=== PATIENT | male | born 1945 | race Caucasian/White ===

== ENCOUNTER → 2017-06-25 | Outpatient (CLI) | payer MEDICARE | END | disposition home or self-care (01) | LOC: CFH 13:10 | PROVIDERS: ATTEND Nurse Practitioner | DX: J44.9 Chronic obstructive pulmonary disease, unspecified (principal) | CPT/HCPCS: 71250 ==

== ENCOUNTER → 2017-09-15 | Outpatient (CLI) | payer MEDICARE | END | disposition home or self-care (01) | LOC: CFH 09:11 | PROVIDERS: ATTEND Registered Nurse | DX: J44.9 Chronic obstructive pulmonary disease, unspecified (principal); Z98.890 Other specified postprocedural states | CPT/HCPCS: 71020 ==

== ENCOUNTER 2017-10-27 17:18 | Inpatient (IN) | payer MEDICARE ==
[~2017-10-27] VITALS: Ht 188 cm; Wt 149.7 kg
[2017-10-27 18:24] LABS: BASOPHILS # (AUTO) 0.01 x10^3/uL (0-0.1); BASOPHILS % (AUTO) 0 % (0-1); EOSINOPHILS # (AUTO) 0.27 x10^3/uL (0-0.4); EOSINOPHILS % (AUTO) 3 % (1-7); LYMPHOCYTES # (AUTO) 0.97 x10^3/uL (1-3.4); LYMPHOCYTES % (AUTO) 11 % (22-44); MD NO; MEAN CORPUSCULAR HGB CONC 32.6 g/dL (33.2-36.2); MEAN CORPUSCULAR VOLUME 88.9 fL (81-97); MEAN PLATELET VOLUME 8.4 fL (7.4-10.4); MONOCYTES # (AUTO) 0.72 x10^3/uL (0.2-0.8); MONOCYTES % (AUTO) 8 % (2-9); NEUTROPHILS # (AUTO) 7.27 x10^3/uL (1.8-6.8); NEUTROPHILS % (AUTO) 79 % (42-75); PLATELET COUNT 170 x10^3/uL (130-400); RED BLOOD COUNT 4.92 x10^6/uL (4.38-5.82); RED CELL DISTRIBUTION WIDTH 18.3 % (9.4-14.8)
[2017-10-27 18:35] LABS: ALANINE AMINOTRANSFERASE 25 U/L (12-78); ALBUMIN 3.2 g/dL (3.4-5.0); ANION GAP 8 mmol/L (5-15); CALCIUM 8.4 mg/dL (8.5-10.1); CHLORIDE 108 mmol/L (98-107); CREATININE 1.53 mg/dL (0.7-1.3)
[2017-10-27 18:39] LABS: ALKALINE PHOSPHATASE 116 U/L (45-117); BILIRUBIN,TOTAL 1.1 mg/dL (0.2-1.0); TOTAL PROTEIN 7.2 g/dL (6.4-8.2); TROPONIN I < 0.015 ng/mL (0.000-0.045)
[2017-10-27] MEDS ORDERED: ASPI-650 PO (18:53)
[2017-10-27] MEDS ORDERED: AMLO5TAB2 PO (18:53)
[2017-10-27] MEDS ORDERED: CITA40TA5 PO (18:53)
[2017-10-27] MEDS ORDERED: OXYGEN INH (18:53)
[2017-10-27] MEDS ORDERED: ATOR-2 PO (18:53)
[2017-10-27] MEDS ORDERED: GABA300C10 PO (18:53)
[2017-10-27] MEDS ORDERED: INSU100C5 SQ-INSULIN (18:53)
[2017-10-27] MEDS ORDERED: LOSA25TA5 PO (18:53)
[2017-10-27] MEDS ORDERED: CYAN100028 PO (18:53)
[2017-10-27] MEDS ORDERED: CARV-39 PO (18:53)
[2017-10-27] MEDS ORDERED: CHOL200040 PO (18:53)
[2017-10-27] MEDS ORDERED: ACET-1757 PO (18:53)
[2017-10-27] MEDS ORDERED: NAPR220C2 PO (18:53)
[2017-10-27] MEDS ORDERED: FURO-92 PO (18:53)
[2017-10-27] MEDS ORDERED: MAGN400T36 PO (19:04)
[2017-10-27] MEDS ORDERED: INSU100V11 SQ-INSULIN ×2 (19:04)
[2017-10-27] MEDS ORDERED: NPH,100V5 SQ ×2 (19:04)
[2017-10-27] MEDS ORDERED: TRAM100T2 PO (19:04)
[2017-10-27] MEDS ORDERED: GLYC10.7 INH (19:04)
[2017-10-27] MEDS ORDERED: ZOLP10TA5 PO (19:04)
[2017-10-27] MEDS ORDERED: TIOT4MIS3 INH (19:04)
[2017-10-27] MEDS ORDERED: MORPHINE SULFATE 4 MG/ML, 1ML ONE (19:11)
[2017-10-27] MEDS ORDERED: ASPIRIN 81 MG TABLET CHEW ONE (19:12)
[2017-10-27] MEDS ORDERED: ONDANSETRON 2MG/ML, 2ML ONE (19:12)
[2017-10-27] MEDS ORDERED: FUROSEMIDE 40 MG/4 ML ONE (19:16)
[2017-10-27] MEDS ORDERED: MORPHINE SULFATE 4 MG/ML, 1ML IVPush PRN (19:30)
[2017-10-27] MEDS ORDERED: FUROSEMIDE 40 MG/4 ML IV ONE (19:30)
[2017-10-27] MEDS ORDERED: ASPIRIN 81 MG TABLET CHEW PO ONE (19:30)
[2017-10-27] MEDS ORDERED: ONDANSETRON 2MG/ML, 2ML IVPush ONE (19:30)
[2017-10-27] MEDS ORDERED: INSULIN REGULAR 100 UNITS/ML, 3ML VIAL SQ-INSULIN SCH (20:30)
[2017-10-27] MEDS ORDERED: DOCUSATE 100 MG CAPSULE PO PRN (20:30)
[2017-10-27] MEDS ORDERED: ACETAMINOPHEN 325 MG TABLET PO PRN (20:30)
[2017-10-27] MEDS ORDERED: NITROGLYCERIN 0.4 MG BOTTLE (25 TABS) SL PRN (20:30)
[2017-10-27] MEDS ORDERED: morphine SULFATE 10 MG/ML, 1ML IVPush PRN (20:30)
[2017-10-27] MEDS ORDERED: TEMAZEPAM 15 MG CAPSULE PO PRN (20:30)
[2017-10-27] MEDS ORDERED: hydrALAzine 20 MG/ML, 1ML IVPush PRN (20:30)
[2017-10-27] MEDS ORDERED: ASPIRIN 325 MG TABLET EC PO SCH (21:00)
[2017-10-27] MEDS ORDERED: TEMPLATE NON-FORMULARY MED. ([Oxygen] 2 L) INH SCH (21:00)
[2017-10-27] MEDS: TEMPLATE NON-FORMULARY MED. (Tiotropium Br/Olodaterol HCl (Stiolto Respimat Inhal Spray) 2 INH SCH (21:00)
[2017-10-27] MEDS ORDERED: [UNRECOGNIZED DRUG - REMARK] MC SCH (23:00)
[2017-10-27] MEDS: methylPREDNISolone SOD SUCC 40 MG/ML IVPush SCH (23:51)
[2017-10-27] MEDS: GABAPENTIN 300 MG CAPSULE PO SCH (23:52)
[2017-10-27] MEDS: CARVEDILOL 25 MG TABLET PO SCH (23:52)
[2017-10-27 23:55] VITALS: BP 116/66
[2017-10-28 00:29] LABS: TROPONIN I 0.019 ng/mL (0.000-0.045)
[2017-10-28 02:49] LABS: TROPONIN I 0.016 ng/mL (0.000-0.045)
[2017-10-28 04:00] VITALS: BP 117/66
[2017-10-28] MEDS: methylPREDNISolone SOD SUCC 40 MG/ML IVPush SCH ×2 (06:23→12:00)
[2017-10-28 07:29] VITALS: BP 121/71
[2017-10-28] MEDS: FUROSEMIDE 40 MG/4 ML IV SCH ×2 (07:30→16:56)
[2017-10-28] MEDS ORDERED: INSULIN REGULAR 100 UNITS/ML, 3ML VIAL SQ-INSULIN SCH (07:30)
[2017-10-28] MEDS: INSULIN NPH HUMAN 100 UNIT/ML, 3ML VIAL SQ-INSULIN SCH ×3 (07:30→21:00)
[2017-10-28] MEDS: INSULIN REGULAR 100 UNITS/ML, 3ML VIAL SQ-INSULIN SCH ×3 (07:30→16:57)
[2017-10-28] MEDS: CITALOPRAM 20 MG TABLET PO SCH (09:00)
[2017-10-28] MEDS: GABAPENTIN 300 MG CAPSULE PO SCH ×2 (09:00→21:00)
[2017-10-28] MEDS ORDERED: INSULIN NPH HUMAN 100 UNIT/ML, 3ML VIAL SQ-INSULIN SCH (09:00)
[2017-10-28] MEDS ORDERED: ATORVASTATIN 80 MG TABLET PO SCH (09:00)
[2017-10-28] MEDS: CHOLECALCIFEROL 1,000 UNIT TABLET PO SCH (09:00)
[2017-10-28] MEDS: LOSARTAN 25MG TABLET PO SCH (09:00)
[2017-10-28] MEDS ORDERED: MAGNESIUM OXIDE 400 MG TABLET PO SCH (09:00)
[2017-10-28] MEDS: CYANOCOBALAMIN 1,000 MCG TABLET PO SCH (09:00)
[2017-10-28] MEDS: CARVEDILOL 25 MG TABLET PO SCH ×2 (09:00→21:00)
[2017-10-28] MEDS: AMLODIPINE 5 MG TABLET PO SCH (09:00)
[2017-10-28 14:54] VITALS: BP 114/57
[2017-10-28 19:47] VITALS: BP 136/65
[2017-10-28] MEDS ORDERED: ASPIRIN 81 MG TABLET EC PO SCH (21:00)
[2017-10-28] MEDS: TEMPLATE NON-FORMULARY MED. (Tiotropium Br/Olodaterol HCl (Stiolto Respimat Inhal Spray) 2 INH SCH (21:00)
[2017-10-28] MEDS ORDERED: ZOLPIDEM 10MG TABLET PO PRN (21:00)
[2017-10-28] MEDS ORDERED: ASPIRIN 325 MG TABLET PO SCH (23:00)
[2017-10-29 01:42] VITALS: BP 109/67
[2017-10-29 05:17] LABS: ALBUMIN 3.1 g/dL (3.4-5.0); ANION GAP 7 mmol/L (5-15); CALCIUM 8.4 mg/dL (8.5-10.1); CHLORIDE 104 mmol/L (98-107)
[2017-10-29 05:18] LABS: BASOPHILS % (AUTO) 0 % (0-1); EOSINOPHILS % (AUTO) 0 % (1-7); LYMPHOCYTES # (AUTO) 0.49 x10^3/uL (1-3.4); LYMPHOCYTES % (AUTO) 4 % (22-44); MD NO; MEAN CORPUSCULAR HGB CONC 32.4 g/dL (33.2-36.2); MEAN CORPUSCULAR VOLUME 89.3 fL (81-97); MEAN PLATELET VOLUME 8.8 fL (7.4-10.4); MONOCYTES # (AUTO) 0.73 x10^3/uL (0.2-0.8); MONOCYTES % (AUTO) 6 % (2-9); NEUTROPHILS # (AUTO) 11.22 x10^3/uL (1.8-6.8); NEUTROPHILS % (AUTO) 90 % (42-75); PLATELET COUNT 146 x10^3/uL (130-400); RED BLOOD COUNT 4.59 x10^6/uL (4.38-5.82); RED CELL DISTRIBUTION WIDTH 17.9 % (9.4-14.8)
[2017-10-29 05:20] LABS: ALANINE AMINOTRANSFERASE 21 U/L (12-78); ALKALINE PHOSPHATASE 103 U/L (45-117); BILIRUBIN,TOTAL 0.8 mg/dL (0.2-1.0); CREATININE 1.67 mg/dL (0.7-1.3); TOTAL PROTEIN 6.6 g/dL (6.4-8.2)
[2017-10-29] MEDS: INSULIN REGULAR 100 UNITS/ML, 3ML VIAL SQ-INSULIN SCH ×5 (07:30→21:00)
[2017-10-29] MEDS: FUROSEMIDE 40 MG/4 ML IV SCH (07:30)
[2017-10-29 08:19] VITALS: BP 150/77
[2017-10-29] MEDS ORDERED: REGADENOSON 0.4 MG/5 ML SYRINGE ONE (09:04)
[2017-10-29] MEDS: INSULIN NPH HUMAN 100 UNIT/ML, 3ML VIAL SQ-INSULIN SCH ×3 (09:11→21:36)
[2017-10-29] MEDS: AMLODIPINE 5 MG TABLET PO SCH (11:13)
[2017-10-29] MEDS: GABAPENTIN 300 MG CAPSULE PO SCH ×3 (11:13→21:35)
[2017-10-29] MEDS: CARVEDILOL 25 MG TABLET PO SCH (11:14)
[2017-10-29] MEDS: CHOLECALCIFEROL 1,000 UNIT TABLET PO SCH (11:14)
[2017-10-29] MEDS: CYANOCOBALAMIN 1,000 MCG TABLET PO SCH (11:14)
[2017-10-29] MEDS: LOSARTAN 25MG TABLET PO SCH (11:15)
[2017-10-29] MEDS: CITALOPRAM 20 MG TABLET PO SCH (11:15)
[2017-10-29 14:02] VITALS: BP 128/66
[2017-10-29] MEDS: FUROSEMIDE 20 MG/2 ML IV SCH (17:42)
[2017-10-29 17:46] VITALS: BP 147/76
[2017-10-29 19:39] VITALS: BP 135/74
[2017-10-29] MEDS: TEMPLATE NON-FORMULARY MED. (Tiotropium Br/Olodaterol HCl (Stiolto Respimat Inhal Spray) 2 INH SCH (21:00)
[2017-10-29] MEDS: ATORVASTATIN 80 MG TABLET PO SCH (21:36)
[2017-10-29] MEDS: ASPIRIN 81 MG TABLET EC PO SCH (21:37)
[2017-10-30 01:33] VITALS: BP 108/66
[2017-10-30 05:45] LABS: ANION GAP 4 mmol/L (5-15); CHLORIDE 105 mmol/L (98-107); CREATININE 1.27 mg/dL (0.7-1.3)
[2017-10-30 06:03] LABS: BASOPHILS # (AUTO) 0.02 x10^3/uL (0-0.1); BASOPHILS % (AUTO) 0 % (0-1); EOSINOPHILS # (AUTO) 0.15 x10^3/uL (0-0.4); EOSINOPHILS % (AUTO) 2 % (1-7); LYMPHOCYTES # (AUTO) 1.19 x10^3/uL (1-3.4); LYMPHOCYTES % (AUTO) 12 % (22-44); MD NO; MEAN CORPUSCULAR HEMOGLOBIN 28.4 pg (27.5-34.5); MEAN CORPUSCULAR HGB CONC 31.7 g/dL (33.2-36.2); MEAN CORPUSCULAR VOLUME 89.6 fL (81-97); MEAN PLATELET VOLUME 8.6 fL (7.4-10.4); MONOCYTES # (AUTO) 0.76 x10^3/uL (0.2-0.8); MONOCYTES % (AUTO) 8 % (2-9); NEUTROPHILS # (AUTO) 7.54 x10^3/uL (1.8-6.8); NEUTROPHILS % (AUTO) 78 % (42-75); PLATELET COUNT 147 x10^3/uL (130-400); RED BLOOD COUNT 4.57 x10^6/uL (4.38-5.82); RED CELL DISTRIBUTION WIDTH 18.3 % (9.4-14.8)
[2017-10-30] MEDS: INSULIN REGULAR 100 UNITS/ML, 3ML VIAL SQ-INSULIN SCH ×4 (06:29→21:00)
[2017-10-30] MEDS: INSULIN NPH HUMAN 100 UNIT/ML, 3ML VIAL SQ-INSULIN SCH ×2 (07:30→12:50)
[2017-10-30 08:00] VITALS: BP 134/84
[2017-10-30] MEDS ORDERED: CARVEDILOL 25 MG TABLET PO SCH (09:00)
[2017-10-30] MEDS: CYANOCOBALAMIN 1,000 MCG TABLET PO SCH (10:43)
[2017-10-30] MEDS: LOSARTAN 25MG TABLET PO SCH (10:43)
[2017-10-30] MEDS: CITALOPRAM 20 MG TABLET PO SCH (10:43)
[2017-10-30] MEDS: GABAPENTIN 300 MG CAPSULE PO SCH ×2 (10:43→21:13)
[2017-10-30] MEDS: CHOLECALCIFEROL 1,000 UNIT TABLET PO SCH (10:43)
[2017-10-30] MEDS: FUROSEMIDE 20 MG/2 ML IV SCH ×2 (10:46→16:38)
[2017-10-30 16:30] VITALS: BP 154/77
[2017-10-30 17:38] VITALS: BP 114/69
[2017-10-30] MEDS: TEMPLATE NON-FORMULARY MED. (Tiotropium Br/Olodaterol HCl (Stiolto Respimat Inhal Spray) 2 INH SCH (21:00)
[2017-10-30] MEDS ORDERED: SULFAMETH./TRIMETHOPRIM DS 800MG/160MG TABLET PO SCH (21:00)
[2017-10-30] MEDS ORDERED: INSULIN NPH HUMAN 100 UNIT/ML, 3ML VIAL SQ-INSULIN SCH (21:00)
[2017-10-30] MEDS: ASPIRIN 81 MG TABLET EC PO SCH (21:13)
[2017-10-30] MEDS: ATORVASTATIN 80 MG TABLET PO SCH (21:13)
[2017-10-30] MEDS: AMLODIPINE 5 MG TABLET PO SCH (21:13)
[2017-10-30 21:16] VITALS: BP 129/71
[2017-10-31 02:28] VITALS: BP 162/94
[2017-10-31 05:21] LABS: BASOPHILS # (AUTO) 0.05 x10^3/uL (0-0.1); BASOPHILS % (AUTO) 1 % (0-1); EOSINOPHILS # (AUTO) 0.39 x10^3/uL (0-0.4); EOSINOPHILS % (AUTO) 4 % (1-7); LYMPHOCYTES # (AUTO) 1.12 x10^3/uL (1-3.4); LYMPHOCYTES % (AUTO) 11 % (22-44); MD NO; MEAN CORPUSCULAR HEMOGLOBIN 28.7 pg (27.5-34.5); MEAN CORPUSCULAR HGB CONC 32.4 g/dL (33.2-36.2); MEAN CORPUSCULAR VOLUME 88.6 fL (81-97); MEAN PLATELET VOLUME 8.4 fL (7.4-10.4); MONOCYTES # (AUTO) 1.01 x10^3/uL (0.2-0.8); MONOCYTES % (AUTO) 10 % (2-9); NEUTROPHILS # (AUTO) 7.25 x10^3/uL (1.8-6.8); NEUTROPHILS % (AUTO) 74 % (42-75); PLATELET COUNT 172 x10^3/uL (130-400); RED BLOOD COUNT 5.08 x10^6/uL (4.38-5.82); RED CELL DISTRIBUTION WIDTH 18.6 % (9.4-14.8)
[2017-10-31 05:31] LABS: ANION GAP 5 mmol/L (5-15); CALCIUM 8.5 mg/dL (8.5-10.1); CHLORIDE 103 mmol/L (98-107); CREATININE 1.13 mg/dL (0.7-1.3)
[2017-10-31] MEDS: INSULIN REGULAR 100 UNITS/ML, 3ML VIAL SQ-INSULIN SCH ×4 (07:00→21:55)
[2017-10-31] MEDS: CITALOPRAM 20 MG TABLET PO SCH (08:26)
[2017-10-31] MEDS: CHOLECALCIFEROL 1,000 UNIT TABLET PO SCH (08:26)
[2017-10-31] MEDS: GABAPENTIN 300 MG CAPSULE PO SCH ×2 (08:27→21:52)
[2017-10-31] MEDS: LOSARTAN 25MG TABLET PO SCH (08:27)
[2017-10-31] MEDS: FUROSEMIDE 20 MG/2 ML IV SCH ×2 (08:27→17:52)
[2017-10-31] MEDS: CYANOCOBALAMIN 1,000 MCG TABLET PO SCH (08:31)
[2017-10-31] MEDS ORDERED: SODIUM CHLORIDE 0.9% 1,000 ML IV SCH ×2 (10:36→11:00)
[2017-10-31 12:51] VITALS: BP 172/66
[2017-10-31] MEDS: TEMPLATE NON-FORMULARY MED. (Tiotropium Br/Olodaterol HCl (Stiolto Respimat Inhal Spray) 2 INH SCH (21:00)
[2017-10-31 21:01] VITALS: BP 158/81
[2017-10-31] MEDS: ASPIRIN 81 MG TABLET EC PO SCH (21:52)
[2017-10-31] MEDS: AMLODIPINE 5 MG TABLET PO SCH (21:52)
[2017-10-31] MEDS: ATORVASTATIN 80 MG TABLET PO SCH (21:52)
[2017-10-31] MEDS: INSULIN NPH HUMAN 100 UNIT/ML, 3ML VIAL SQ-INSULIN SCH (21:54)
[2017-11-01 02:00] VITALS: BP 135/74
[2017-11-01 04:48] LABS: BASOPHILS # (AUTO) 0.07 x10^3/uL (0-0.1); BASOPHILS % (AUTO) 1 % (0-1); EOSINOPHILS # (AUTO) 0.41 x10^3/uL (0-0.4); EOSINOPHILS % (AUTO) 4 % (1-7); LYMPHOCYTES # (AUTO) 1.46 x10^3/uL (1-3.4); LYMPHOCYTES % (AUTO) 16 % (22-44); MD NO; MEAN CORPUSCULAR HEMOGLOBIN 29.2 pg (27.5-34.5); MEAN CORPUSCULAR HGB CONC 32.9 g/dL (33.2-36.2); MEAN CORPUSCULAR VOLUME 88.7 fL (81-97); MEAN PLATELET VOLUME 7.9 fL (7.4-10.4); MONOCYTES # (AUTO) 0.92 x10^3/uL (0.2-0.8); MONOCYTES % (AUTO) 10 % (2-9); NEUTROPHILS # (AUTO) 6.48 x10^3/uL (1.8-6.8); NEUTROPHILS % (AUTO) 69 % (42-75); PLATELET COUNT 167 x10^3/uL (130-400); RED BLOOD COUNT 5.09 x10^6/uL (4.38-5.82); RED CELL DISTRIBUTION WIDTH 18.1 % (9.4-14.8)
[2017-11-01 04:58] LABS: ANION GAP 3 mmol/L (5-15); CALCIUM 8.4 mg/dL (8.5-10.1); CHLORIDE 100 mmol/L (98-107); CREATININE 1.37 mg/dL (0.7-1.3)
[2017-11-01] MEDS: INSULIN REGULAR 100 UNITS/ML, 3ML VIAL SQ-INSULIN SCH ×4 (07:00→21:00)
[2017-11-01] MEDS: INSULIN NPH HUMAN 100 UNIT/ML, 3ML VIAL SQ-INSULIN SCH ×2 (07:30→20:59)
[2017-11-01 08:00] VITALS: BP 155/83
[2017-11-01] MEDS ORDERED: SODIUM CHLORIDE 0.9% 1,000 ML IV SCH (09:00)
[2017-11-01] MEDS ORDERED: BENZOCAINE AEROSOL SPRAY 20%, 60ML TP PRN (09:00)
[2017-11-01] MEDS ORDERED: LIDOCAINE 2%, 20ML ONE (09:22)
[2017-11-01] MEDS ORDERED: MIDAZOLAM 1 MG/ML, 5ML ONE (09:26)
[2017-11-01] MEDS ORDERED: FENTANYL PF 250 MCG/5ML ONE (09:26)
[2017-11-01] MEDS ORDERED: DEXAMETHASONE 4 MG/ML, 1ML ONE (09:30)
[2017-11-01] MEDS ORDERED: ONDANSETRON 2MG/ML, 2ML ONE (09:30)
[2017-11-01] MEDS ORDERED: PROPOFOL 10 MG/ML, 20ML ONE (09:30)
[2017-11-01] MEDS ORDERED: SUCCINYLCHOLINE 20 MG/ML, 10ML ONE (09:30)
[2017-11-01] MEDS ORDERED: APIXABAN 5 MG TABLET ONE (10:46)
[2017-11-01] MEDS ORDERED: ONDANSETRON 2MG/ML, 2ML IVPush PRN ×2 (11:00→11:30)
[2017-11-01] MEDS ORDERED: ACETAMINOPHEN 325 MG TABLET PO PRN ×2 (11:00→11:30)
[2017-11-01] MEDS: APIXABAN 5 MG TABLET PO SCH ×2 (11:00→20:36)
[2017-11-01] MEDS ORDERED: EPHEDRINE 50 MG/ML, 1ML IVPush PRN (11:30)
[2017-11-01] MEDS ORDERED: MIDAZOLAM 1 MG/ML, 2ML IV PRN (11:30)
[2017-11-01] MEDS ORDERED: FENTANYL PF 100 MCG/2ML IV PRN (11:30)
[2017-11-01] MEDS ORDERED: OXYcodone 5 MG/5 ML ORAL.SOL UDC PO PRN (11:30)
[2017-11-01] MEDS ORDERED: LABETALOL 5MG/ML, 20ML IV PRN (11:30)
[2017-11-01] MEDS ORDERED: ALBUTEROL/IPRATROPIUM 2.5MG/0.5MG, 3 ML NPPB PRN (11:30)
[2017-11-01] MEDS ORDERED: LORazepam 2 MG/ML, 1ML IVPush PRN (11:30)
[2017-11-01] MEDS ORDERED: HYDROmorphone 1 MG/ML, 1ML IV PRN (11:30)
[2017-11-01] MEDS ORDERED: OXYcodone 5 MG/5 ML ORAL.SOL UDC ONE (11:34)
[2017-11-01 12:30] VITALS: BP 160/80
[2017-11-01] MEDS: LOSARTAN 25MG TABLET PO SCH (12:48)
[2017-11-01] MEDS: CITALOPRAM 20 MG TABLET PO SCH (12:49)
[2017-11-01] MEDS: AMLODIPINE 5 MG TABLET PO SCH (12:50)
[2017-11-01] MEDS: GABAPENTIN 300 MG CAPSULE PO SCH ×2 (12:50→20:36)
[2017-11-01] MEDS: CHOLECALCIFEROL 1,000 UNIT TABLET PO SCH (12:50)
[2017-11-01] MEDS: CYANOCOBALAMIN 1,000 MCG TABLET PO SCH (12:50)
[2017-11-01] MEDS: FUROSEMIDE 40 MG TABLET PO SCH (13:01)
[2017-11-01 13:44] VITALS: BP 147/80
[2017-11-01 16:41] VITALS: BP 152/76
[2017-11-01] MEDS: ATORVASTATIN 80 MG TABLET PO SCH (20:36)
[2017-11-01] MEDS: ASPIRIN 81 MG TABLET EC PO SCH (20:36)
[2017-11-01] MEDS: TEMPLATE NON-FORMULARY MED. (Tiotropium Br/Olodaterol HCl (Stiolto Respimat Inhal Spray) 2 INH SCH (20:38)
[2017-11-01 21:27] VITALS: BP 114/56
[2017-11-02 01:24] VITALS: BP 138/75
[2017-11-02 05:43] LABS: ALBUMIN 3.3 g/dL (3.4-5.0); ANION GAP 6 mmol/L (5-15); CALCIUM 8.3 mg/dL (8.5-10.1); CHLORIDE 101 mmol/L (98-107); CREATININE 1.42 mg/dL (0.7-1.3)
[2017-11-02 08:23] VITALS: BP 166/93
[2017-11-02] MEDS: INSULIN NPH HUMAN 100 UNIT/ML, 3ML VIAL SQ-INSULIN SCH (08:30)
[2017-11-02] MEDS: GABAPENTIN 300 MG CAPSULE PO SCH (08:31)
[2017-11-02] MEDS: CITALOPRAM 20 MG TABLET PO SCH (08:31)
[2017-11-02] MEDS: INSULIN REGULAR 100 UNITS/ML, 3ML VIAL SQ-INSULIN SCH ×2 (08:31→12:10)
[2017-11-02] MEDS: AMLODIPINE 5 MG TABLET PO SCH (08:31)
[2017-11-02] MEDS: LOSARTAN 25MG TABLET PO SCH (08:31)
[2017-11-02] MEDS: APIXABAN 5 MG TABLET PO SCH (08:31)
[2017-11-02] MEDS: FUROSEMIDE 40 MG TABLET PO SCH (08:31)
[2017-11-02] MEDS: CHOLECALCIFEROL 1,000 UNIT TABLET PO SCH (08:32)
[2017-11-02] MEDS: CYANOCOBALAMIN 1,000 MCG TABLET PO SCH (08:32)
[2017-11-02] MEDS ORDERED: APIX5TAB PO (12:24)
[2017-11-02] MEDS ORDERED: ASPI-621 PO (12:24)
[2017-11-02] MEDS ORDERED: AMLO5TAB2 PO (12:24)
[2017-11-02 12:45] VITALS: BP 167/82
[2017-11-02] MEDS ORDERED: AMLODIPINE 5 MG TABLET PO SCH (21:00)
== END 2017-11-02 16:49 | disposition home or self-care (01) | DRG 273 ==
LOC: ED 20:03 → EDIP 20:05 → 5SO 22:48
PROVIDERS: ADMIT Internal Medicine; ATTEND Internal Medicine
PROC: 02583ZZ Destruction of Conduction Mechanism, Percutaneous Approach (ICD-10-PCS; principal; 2017-10-27)
PROC: 02K83ZZ Map Conduction Mechanism, Percutaneous Approach (ICD-10-PCS; 2017-10-27)
PROC: 4A0234Z Measurement of Cardiac Electrical Activity, Percutaneous Approach (ICD-10-PCS; 2017-10-27)
DX: I13.0 Hypertensive heart and chronic kidney disease with heart failure and stage 1 through stage 4 chronic kidney disease, or unspecified chronic kidney disease (principal); J96.21 Acute and chronic respiratory failure with hypoxia; D68.69 Other thrombophilia; E11.21 Type 2 diabetes mellitus with diabetic nephropathy; E11.40 Type 2 diabetes mellitus with diabetic neuropathy, unspecified; E11.649 Type 2 diabetes mellitus with hypoglycemia without coma; I50.41 Acute combined systolic (congestive) and diastolic (congestive) heart failure; I48.92 Unspecified atrial flutter; J44.1 Chronic obstructive pulmonary disease with (acute) exacerbation; Z68.41 Body mass index [BMI] 40.0-44.9, adult; E66.2 Morbid (severe) obesity with alveolar hypoventilation; E78.00 Pure hypercholesterolemia, unspecified; E78.5 Hyperlipidemia, unspecified; I25.10 Atherosclerotic heart disease of native coronary artery without angina pectoris; I25.5 Ischemic cardiomyopathy; N18.9 Chronic kidney disease, unspecified; Z79.01 Long term (current) use of anticoagulants; Z79.4 Long term (current) use of insulin; Z82.3 Family history of stroke; Z82.49 Family history of ischemic heart disease and other diseases of the circulatory system; Z95.1 Presence of aortocoronary bypass graft; Z99.81 Dependence on supplemental oxygen; Z87.891 Personal history of nicotine dependence; I49.5 Sick sinus syndrome; E66.01 Morbid (severe) obesity due to excess calories
CPT/HCPCS: 36415; 71045; 71046; 78452; 78582; 80048; 80053; 82040; 82962; 83036; 83735; 83880; 84484; 85025; 85379; 93005; 93017; 93306; 93308; 93312; 93321; 93325; 93613; 93621; 93653; C1731; C1732; C1766; C1894; J1100; J1815; J1940; J2250; J2405; J2704; J2785; J3010; J3490; A9502; A9540; A9558; C1730; C9898; J0330; J2920

== ENCOUNTER 2018-04-26 14:09 | Inpatient (IN) | payer MEDICARE ==
[~2018-04-26] VITALS: Ht 190.5 cm; Wt 138.3 kg
[~2018-04-26 14:09] MED LIST: ACET-1757 PO; AMLO5TAB2 PO; APIX5TAB PO; ASPI-621 PO; ASPI-650 PO; ATOR-2 PO; CARV-39 PO; CHOL200040 PO; CITA40TA5 PO; CYAN100028 PO; FURO-92 PO; GABA300C10 PO; GLYC10.7 INH; INSU100C5 SQ-INSULIN; INSU100V11 SQ-INSULIN; LOSA25TA5 PO; MAGN400T36 PO; NAPR220C2 PO; NPH,100V5 SQ; OXYGEN INH; TIOT4MIS3 INH; TRAM100T33 PO; ZOLP10TA5 PO
[2018-04-26 14:38] LABS: BASOPHILS # (AUTO) 0.05 x10^3/uL (0-0.1); BASOPHILS % (AUTO) 0 % (0-1); EOSINOPHILS % (AUTO) 0 % (1-7); LYMPHOCYTES # (AUTO) 1.03 x10^3/uL (1-3.4); LYMPHOCYTES % (AUTO) 6 % (22-44); MD NO; MEAN CORPUSCULAR HEMOGLOBIN 29.5 pg (27.5-34.5); MEAN CORPUSCULAR VOLUME 89.4 fL (81-97); MONOCYTES # (AUTO) 1.03 x10^3/uL (0.2-0.8); MONOCYTES % (AUTO) 6 % (2-9); NEUTROPHILS # (AUTO) 14.49 x10^3/uL (1.8-6.8); NEUTROPHILS % (AUTO) 87 % (42-75); PLATELET COUNT 194 x10^3/uL (130-400); RED BLOOD COUNT 4.21 x10^6/uL (4.38-5.82); RED CELL DISTRIBUTION WIDTH 16.8 % (9.4-14.8)
[2018-04-26 14:48] LABS: INTERNATIONAL NORMALIZED RATIO 1.16 (0.93-1.1)
[2018-04-26 14:51] LABS: ALANINE AMINOTRANSFERASE 21 U/L (12-78); ALBUMIN 3.2 g/dL (3.4-5.0); ANION GAP 10 mmol/L (5-15); CALCIUM 8.6 mg/dL (8.5-10.1); CHLORIDE 100 mmol/L (98-107); CREATININE 2.56 mg/dL (0.7-1.3)
[2018-04-26 14:55] LABS: ALKALINE PHOSPHATASE 109 U/L (45-117); BILIRUBIN,TOTAL 0.6 mg/dL (0.2-1.0); TOTAL PROTEIN 6.7 g/dL (6.4-8.2); TROPONIN I < 0.015 ng/mL (0.000-0.045)
[2018-04-26] MEDS ORDERED: SODIUM CHLORIDE 0.9%, 500ML IVBOLUS ONE ×2 (15:30→16:00)
[2018-04-26] MEDS ORDERED: FENTANYL PF 100 MCG/2ML IVPush PRN (16:00)
[2018-04-26] MEDS ORDERED: FENTANYL PF 100 MCG/2ML ONE (16:25)
[2018-04-26] MEDS ORDERED: SODIUM CHLORIDE 0.9% 1,000 ML IV SCH (18:04)
[2018-04-26] MEDS ORDERED: POLYETHYLENE GLYCOL 17 GM PACKET PO PRN (18:30)
[2018-04-26] MEDS ORDERED: DEXTROSE 50%, 50ML SYRINGE IVPush PRN (18:30)
[2018-04-26] MEDS ORDERED: hydrALAzine 20 MG/ML, 1ML IVPush PRN (18:30)
[2018-04-26] MEDS ORDERED: ACETAMINOPHEN 325 MG TABLET PO PRN (18:30)
[2018-04-26] MEDS ORDERED: GLUCAGON 1 MG IM PRN (18:30)
[2018-04-26] MEDS ORDERED: BISACODYL 10 MG SUPP PR PRN (18:30)
[2018-04-26] MEDS ORDERED: DEXTROSE 4 GM TAB.CHEW PO PRN (18:30)
[2018-04-26] MEDS ORDERED: ONDANSETRON 2MG/ML, 2ML IVPush PRN (18:30)
[2018-04-26] MEDS ORDERED: ZOLPIDEM 10MG TABLET PO PRN (18:30)
[2018-04-26] MEDS ORDERED: SODIUM CHLORIDE 0.9% 1,000 ML IVBOLUS PRN (19:24)
[2018-04-26] MEDS: PLEASE ENTER WEIGHT MC SCH (19:30)
[2018-04-26] MEDS: SODIUM CHLORIDE FLUSH 10ML SYR IVF SCH (20:23)
[2018-04-26] MEDS: TEMPLATE NON-FORMULARY MED. ([Oxygen] 2 L) INH SCH (20:23)
[2018-04-26] MEDS: SODIUM CHLORIDE 0.9% 1,000 ML IV SCH (20:48)
[2018-04-26 20:57] VITALS: BP 102/57
[2018-04-26] MEDS ORDERED: TEMPLATE NON-FORMULARY MED. ([Oxygen] 2 L) INH SCH (21:00)
[2018-04-26] MEDS: TEMPLATE NON-FORMULARY MED. (Tiotropium Br/Olodaterol HCl (Stiolto Respimat Inhal Spray) 2 INH SCH (21:00)
[2018-04-26] MEDS ORDERED: ALBUTEROL SULFATE 2.5 MG/3 ML NPPB PRN (21:00)
[2018-04-26] MEDS: INSULIN LISPRO 100 UNITS/ML, PEN SQ-INSULIN SCH (21:00)
[2018-04-26] MEDS: GABAPENTIN 300 MG CAPSULE PO SCH (21:19)
[2018-04-26 21:33] VITALS: BP 102/57
[2018-04-27 00:17] VITALS: BP 97/58
[2018-04-27 02:16] VITALS: BP 114/63
[2018-04-27] MEDS: PLEASE ENTER WEIGHT MC SCH ×2 (03:18→11:30)
[2018-04-27] MEDS: SODIUM CHLORIDE 0.9% 1,000 ML IV SCH ×2 (04:13→17:44)
[2018-04-27 05:18] LABS: ALBUMIN 3.1 g/dL (3.4-5.0); ANION GAP 7 mmol/L (5-15); CALCIUM 8.1 mg/dL (8.5-10.1); CHLORIDE 101 mmol/L (98-107)
[2018-04-27 05:25] LABS: ALANINE AMINOTRANSFERASE 20 U/L (12-78); ALKALINE PHOSPHATASE 87 U/L (45-117); BASOPHILS # (AUTO) 0.03 x10^3/uL (0-0.1); BASOPHILS % (AUTO) 0 % (0-1); BILIRUBIN,TOTAL 0.7 mg/dL (0.2-1.0); CREATININE 3.11 mg/dL (0.7-1.3); EOSINOPHILS % (AUTO) 0 % (1-7); LYMPHOCYTES # (AUTO) 1.22 x10^3/uL (1-3.4); LYMPHOCYTES % (AUTO) 7 % (22-44); MD NO; MEAN CORPUSCULAR HEMOGLOBIN 29.2 pg (27.5-34.5); MEAN CORPUSCULAR HGB CONC 32.8 g/dL (33.2-36.2); MEAN PLATELET VOLUME 8.2 fL (7.4-10.4); MONOCYTES # (AUTO) 0.98 x10^3/uL (0.2-0.8); MONOCYTES % (AUTO) 6 % (2-9); NEUTROPHILS # (AUTO) 15.01 x10^3/uL (1.8-6.8); NEUTROPHILS % (AUTO) 87 % (42-75); PLATELET COUNT 188 x10^3/uL (130-400); RED BLOOD COUNT 3.48 x10^6/uL (4.38-5.82); RED CELL DISTRIBUTION WIDTH 16.6 % (9.4-14.8); TOTAL PROTEIN 6.1 g/dL (6.4-8.2); TROPONIN I < 0.015 ng/mL (0.000-0.045)
[2018-04-27 06:35] VITALS: BP 123/69
[2018-04-27] MEDS: INSULIN LISPRO 100 UNITS/ML, PEN SQ-INSULIN SCH ×4 (07:00→20:31)
[2018-04-27] MEDS ORDERED: FENTANYL PF 100 MCG/2ML ONE ×2 (07:52→09:10)
[2018-04-27] MEDS ORDERED: PROPOFOL 10 MG/ML, 20ML ONE (08:00)
[2018-04-27] MEDS: SODIUM CHLORIDE FLUSH 10ML SYR IVF SCH ×2 (08:00→20:32)
[2018-04-27] MEDS ORDERED: CEFAZOLIN 1,000 MG ONE (08:00)
[2018-04-27] MEDS: CHOLECALCIFEROL 1,000 UNIT TABLET PO SCH (09:00)
[2018-04-27] MEDS: SENNA/DOCUSATE TABLET PO SCH (09:00)
[2018-04-27] MEDS: MAGNESIUM OXIDE 400 MG TABLET PO SCH (09:00)
[2018-04-27] MEDS: GABAPENTIN 300 MG CAPSULE PO SCH ×2 (09:00→20:31)
[2018-04-27] MEDS: CITALOPRAM 20 MG TABLET PO SCH (09:00)
[2018-04-27] MEDS: ATORVASTATIN 80 MG TABLET PO SCH (09:00)
[2018-04-27] MEDS ORDERED: INSULIN NPH HUMAN 100 UNIT/ML, 3ML VIAL SQ-INSULIN SCH (09:00)
[2018-04-27] MEDS: CYANOCOBALAMIN 1,000 MCG TABLET PO SCH (09:00)
[2018-04-27] MEDS ORDERED: OPIUM/BELLADONNA SUPP.RECT 16.2-30 MG ONE (10:23)
[2018-04-27] MEDS ORDERED: ALBUTEROL SULFATE 2.5 MG/3 ML NPPB PRN (10:30)
[2018-04-27] MEDS ORDERED: OPIUM/BELLADONNA SUPP.RECT 16.2-30 MG PR PRN ×2 (10:30→12:00)
[2018-04-27] MEDS ORDERED: OXYcodone 5 MG/5 ML ORAL.SOL UDC PO PRN (10:30)
[2018-04-27] MEDS ORDERED: FENTANYL PF 100 MCG/2ML IV PRN (10:30)
[2018-04-27] MEDS ORDERED: ACETAMINOPHEN 325 MG TABLET PO PRN (10:30)
[2018-04-27 10:47] LABS: TROPONIN I < 0.015 ng/mL (0.000-0.045)
[2018-04-27 11:11] VITALS: BP 112/65
[2018-04-27] MEDS ORDERED: OXYcodone/APAP 5/325MG TABLET PO PRN (12:00)
[2018-04-27] MEDS ORDERED: PHARMACY MAY ADJ FOR RENAL FX MC PRN (12:00)
[2018-04-27 13:26] VITALS: BP 103/54
[2018-04-27] MEDS: TEMPLATE NON-FORMULARY MED. (Tiotropium Br/Olodaterol HCl (Stiolto Respimat Inhal Spray) 2 INH SCH (20:32)
[2018-04-27] MEDS: TEMPLATE NON-FORMULARY MED. ([Oxygen] 2 L) INH SCH (20:32)
[2018-04-27 20:55] VITALS: BP 99/52
[2018-04-28 00:40] VITALS: BP 111/45
[2018-04-28] MEDS: SODIUM CHLORIDE 0.9% 1,000 ML IV SCH ×2 (04:47→13:24)
[2018-04-28 05:40] LABS: ANION GAP 4 mmol/L (5-15); CALCIUM 7.5 mg/dL (8.5-10.1); CHLORIDE 105 mmol/L (98-107); CREATININE 2.13 mg/dL (0.7-1.3)
[2018-04-28 05:44] LABS: BASOPHILS # (AUTO) 0.02 x10^3/uL (0-0.1); BASOPHILS % (AUTO) 0 % (0-1); EOSINOPHILS # (AUTO) 0.12 x10^3/uL (0-0.4); EOSINOPHILS % (AUTO) 1 % (1-7); LYMPHOCYTES # (AUTO) 1.35 x10^3/uL (1-3.4); LYMPHOCYTES % (AUTO) 13 % (22-44); MD NO; MEAN CORPUSCULAR HEMOGLOBIN 29.8 pg (27.5-34.5); MEAN CORPUSCULAR HGB CONC 33.2 g/dL (33.2-36.2); MEAN PLATELET VOLUME 8.1 fL (7.4-10.4); MONOCYTES # (AUTO) 0.96 x10^3/uL (0.2-0.8); MONOCYTES % (AUTO) 9 % (2-9); NEUTROPHILS % (AUTO) 77 % (42-75); PLATELET COUNT 144 x10^3/uL (130-400); RED BLOOD COUNT 2.77 x10^6/uL (4.38-5.82); RED CELL DISTRIBUTION WIDTH 16.5 % (9.4-14.8)
[2018-04-28 06:51] VITALS: BP 106/53
[2018-04-28] MEDS: INSULIN LISPRO 100 UNITS/ML, PEN SQ-INSULIN SCH ×4 (08:33→21:06)
[2018-04-28] MEDS: CITALOPRAM 20 MG TABLET PO SCH (08:34)
[2018-04-28] MEDS: INSULIN NPH HUMAN 100 UNIT/ML, 3ML VIAL SQ-INSULIN SCH (08:34)
[2018-04-28] MEDS: CYANOCOBALAMIN 1,000 MCG TABLET PO SCH (08:34)
[2018-04-28] MEDS: MAGNESIUM OXIDE 400 MG TABLET PO SCH (08:35)
[2018-04-28] MEDS: GABAPENTIN 300 MG CAPSULE PO SCH ×2 (08:35→21:05)
[2018-04-28] MEDS: ATORVASTATIN 80 MG TABLET PO SCH (08:35)
[2018-04-28] MEDS: SENNA/DOCUSATE TABLET PO SCH (08:35)
[2018-04-28] MEDS: CHOLECALCIFEROL 1,000 UNIT TABLET PO SCH (08:35)
[2018-04-28] MEDS: SODIUM CHLORIDE FLUSH 10ML SYR IVF SCH ×2 (08:36→21:00)
[2018-04-28 14:02] VITALS: BP 136/67
[2018-04-28] MEDS ORDERED: PHARMACY MAY ADJ FOR RENAL FX MC PRN (15:30)
[2018-04-28 19:05] VITALS: BP 121/64
[2018-04-28] MEDS: TEMPLATE NON-FORMULARY MED. (Tiotropium Br/Olodaterol HCl (Stiolto Respimat Inhal Spray) 2 INH SCH (21:00)
[2018-04-28] MEDS: TEMPLATE NON-FORMULARY MED. ([Oxygen] 2 L) INH SCH (21:00)
[2018-04-28] MEDS: APIXABAN 5 MG TABLET PO SCH (21:05)
[2018-04-28] MEDS: ASPIRIN 81 MG TABLET EC PO SCH (21:05)
[2018-04-29] MEDS: SODIUM CHLORIDE 0.9% 1,000 ML IV SCH ×2 (00:03→09:48)
[2018-04-29 02:10] LABS: MICROSCOPIC AUTO
[2018-04-29 02:12] LABS: CULTURE INDICATED? NO
[2018-04-29 02:15] LABS: CHLORIDE,URINE RANDOM 150 mmol/L; POTASSIUM,URINE RANDOM 2 mmol/L; SODIUM,URINE RANDOM 145 mmol/L
[2018-04-29 02:18] LABS: CREATININE,URINE RANDOM < 13.00 mg/dL
[2018-04-29 02:38] VITALS: BP 142/65
[2018-04-29 05:48] LABS: ANION GAP 4 mmol/L (5-15); CALCIUM 7.6 mg/dL (8.5-10.1); CHLORIDE 109 mmol/L (98-107)
[2018-04-29 05:49] LABS: CREATININE 1.12 mg/dL (0.7-1.3)
[2018-04-29 06:01] LABS: BASOPHILS # (AUTO) 0.02 x10^3/uL (0-0.1); BASOPHILS % (AUTO) 0 % (0-1); EOSINOPHILS # (AUTO) 0.25 x10^3/uL (0-0.4); EOSINOPHILS % (AUTO) 3 % (1-7); LYMPHOCYTES # (AUTO) 1.35 x10^3/uL (1-3.4); LYMPHOCYTES % (AUTO) 15 % (22-44); MD NO; MEAN CORPUSCULAR HGB CONC 33.6 g/dL (33.2-36.2); MEAN CORPUSCULAR VOLUME 89.2 fL (81-97); MEAN PLATELET VOLUME 8.3 fL (7.4-10.4); MONOCYTES # (AUTO) 0.79 x10^3/uL (0.2-0.8); MONOCYTES % (AUTO) 9 % (2-9); NEUTROPHILS # (AUTO) 6.92 x10^3/uL (1.8-6.8); NEUTROPHILS % (AUTO) 74 % (42-75); PLATELET COUNT 148 x10^3/uL (130-400); RED BLOOD COUNT 2.67 x10^6/uL (4.38-5.82); RED CELL DISTRIBUTION WIDTH 16.4 % (9.4-14.8)
[2018-04-29] MEDS: INSULIN LISPRO 100 UNITS/ML, PEN SQ-INSULIN SCH ×4 (08:02→22:22)
[2018-04-29] MEDS: SODIUM CHLORIDE FLUSH 10ML SYR IVF SCH ×2 (08:03→21:00)
[2018-04-29] MEDS: CITALOPRAM 20 MG TABLET PO SCH (08:03)
[2018-04-29] MEDS: MAGNESIUM OXIDE 400 MG TABLET PO SCH (08:03)
[2018-04-29] MEDS: ATORVASTATIN 80 MG TABLET PO SCH (08:03)
[2018-04-29] MEDS: SENNA/DOCUSATE TABLET PO SCH (08:03)
[2018-04-29] MEDS: APIXABAN 5 MG TABLET PO SCH ×2 (08:04→22:10)
[2018-04-29] MEDS: CYANOCOBALAMIN 1,000 MCG TABLET PO SCH (08:04)
[2018-04-29] MEDS: CHOLECALCIFEROL 1,000 UNIT TABLET PO SCH (08:04)
[2018-04-29] MEDS: INSULIN NPH HUMAN 100 UNIT/ML, 3ML VIAL SQ-INSULIN SCH (08:04)
[2018-04-29] MEDS: GABAPENTIN 300 MG CAPSULE PO SCH ×2 (08:04→22:10)
[2018-04-29 09:05] VITALS: BP 115/49
[2018-04-29 15:43] VITALS: BP 133/56
[2018-04-29] MEDS: TEMPLATE NON-FORMULARY MED. ([Oxygen] 2 L) INH SCH (21:00)
[2018-04-29] MEDS: TEMPLATE NON-FORMULARY MED. (Tiotropium Br/Olodaterol HCl (Stiolto Respimat Inhal Spray) 2 INH SCH (21:00)
[2018-04-29 21:45] VITALS: BP 115/49
[2018-04-29] MEDS: ASPIRIN 81 MG TABLET EC PO SCH (22:10)
[2018-04-30 03:50] VITALS: BP 141/77
[2018-04-30 05:25] LABS: ANION GAP 5 mmol/L (5-15); CALCIUM 7.9 mg/dL (8.5-10.1); CHLORIDE 108 mmol/L (98-107); CREATININE 0.99 mg/dL (0.7-1.3)
[2018-04-30 05:49] LABS: BASOPHILS # (AUTO) 0.02 x10^3/uL (0-0.1); BASOPHILS % (AUTO) 0 % (0-1); EOSINOPHILS # (AUTO) 0.33 x10^3/uL (0-0.4); EOSINOPHILS % (AUTO) 4 % (1-7); LYMPHOCYTES # (AUTO) 1.45 x10^3/uL (1-3.4); LYMPHOCYTES % (AUTO) 15 % (22-44); MD NO; MEAN CORPUSCULAR HEMOGLOBIN 30.2 pg (27.5-34.5); MEAN CORPUSCULAR HGB CONC 33.6 g/dL (33.2-36.2); MEAN CORPUSCULAR VOLUME 89.8 fL (81-97); MEAN PLATELET VOLUME 8.2 fL (7.4-10.4); MONOCYTES % (AUTO) 8 % (2-9); NEUTROPHILS # (AUTO) 7.01 x10^3/uL (1.8-6.8); NEUTROPHILS % (AUTO) 73 % (42-75); PLATELET COUNT 163 x10^3/uL (130-400); RED BLOOD COUNT 2.68 x10^6/uL (4.38-5.82); RED CELL DISTRIBUTION WIDTH 16.1 % (9.4-14.8)
[2018-04-30] MEDS: INSULIN LISPRO 100 UNITS/ML, PEN SQ-INSULIN SCH ×4 (07:00→21:18)
[2018-04-30] MEDS: APIXABAN 5 MG TABLET PO SCH ×2 (08:12→20:05)
[2018-04-30] MEDS: SENNA/DOCUSATE TABLET PO SCH (08:13)
[2018-04-30] MEDS: ATORVASTATIN 80 MG TABLET PO SCH (08:14)
[2018-04-30] MEDS: CHOLECALCIFEROL 1,000 UNIT TABLET PO SCH (08:14)
[2018-04-30] MEDS: MAGNESIUM OXIDE 400 MG TABLET PO SCH (08:14)
[2018-04-30] MEDS: CYANOCOBALAMIN 1,000 MCG TABLET PO SCH (08:15)
[2018-04-30] MEDS: CITALOPRAM 20 MG TABLET PO SCH (08:15)
[2018-04-30] MEDS: GABAPENTIN 300 MG CAPSULE PO SCH ×2 (08:15→20:05)
[2018-04-30] MEDS: SODIUM CHLORIDE FLUSH 10ML SYR IVF SCH ×2 (08:18→20:05)
[2018-04-30] MEDS: INSULIN NPH HUMAN 100 UNIT/ML, 3ML VIAL SQ-INSULIN SCH (08:19)
[2018-04-30 08:42] VITALS: BP 143/67
[2018-04-30 14:00] VITALS: BP 118/78
[2018-04-30 19:34] VITALS: BP 131/63
[2018-04-30] MEDS: TEMPLATE NON-FORMULARY MED. (Tiotropium Br/Olodaterol HCl (Stiolto Respimat Inhal Spray) 2 INH SCH (20:05)
[2018-04-30] MEDS: ASPIRIN 81 MG TABLET EC PO SCH (20:05)
[2018-04-30] MEDS: TEMPLATE NON-FORMULARY MED. ([Oxygen] 2 L) INH SCH (20:05)
[2018-05-01 01:13] VITALS: BP 132/66
[2018-05-01 06:18] LABS: FOLATE LEVEL 9.3 ng/mL (3.1-17.5)
[2018-05-01] MEDS: INSULIN LISPRO 100 UNITS/ML, PEN SQ-INSULIN SCH ×2 (07:00→12:51)
[2018-05-01 07:42] VITALS: BP 114/66
[2018-05-01] MEDS: MAGNESIUM OXIDE 400 MG TABLET PO SCH (09:00)
[2018-05-01] MEDS: INSULIN NPH HUMAN 100 UNIT/ML, 3ML VIAL SQ-INSULIN SCH (09:00)
[2018-05-01] MEDS: SODIUM CHLORIDE FLUSH 10ML SYR IVF SCH (09:00)
[2018-05-01] MEDS: APIXABAN 5 MG TABLET PO SCH (09:00)
[2018-05-01] MEDS: ATORVASTATIN 80 MG TABLET PO SCH (09:01)
[2018-05-01] MEDS: CYANOCOBALAMIN 1,000 MCG TABLET PO SCH (09:01)
[2018-05-01] MEDS: SENNA/DOCUSATE TABLET PO SCH (09:01)
[2018-05-01] MEDS: GABAPENTIN 300 MG CAPSULE PO SCH (09:01)
[2018-05-01] MEDS: CITALOPRAM 20 MG TABLET PO SCH (09:01)
[2018-05-01] MEDS: CHOLECALCIFEROL 1,000 UNIT TABLET PO SCH (09:01)
[2018-05-01 12:07] VITALS: BP 132/68
[2018-05-12] MEDS ORDERED: CARV-39 PO (19:15)
[2018-05-12] MEDS ORDERED: INSU100V11 SQ (19:15)
[2018-05-12] MEDS ORDERED: FURO80TA3 PO (19:15)
[2018-05-12] MEDS ORDERED: ZOLP10TA PO (19:15)
[2018-05-12] MEDS ORDERED: NPH,100V5 SQ (19:15)
[2018-05-12] MEDS ORDERED: NIAC500T9 PO (19:15)
[2018-05-12] MEDS ORDERED: AMLO5TAB2 PO (19:15)
[2018-05-13] MEDS ORDERED: OFLOXACIN OPTH RIGHTEYE (00:35)
[2018-05-13] MEDS ORDERED: KETO1DRO RIGHTEYE (00:35)
[2018-05-13] MEDS ORDERED: PREDNISOLONE RIGHTEYE (00:35)
== END 2018-05-01 17:27 | disposition home or self-care (01) | DRG 698 ==
LOC: ED 15:39 → EDIP 17:22 → 4WST 19:16
PROVIDERS: ADMIT Internal Medicine; ATTEND Internal Medicine
PROC: 0TCB8ZZ Extirpation of Matter from Bladder, Via Natural or Artificial Opening Endoscopic (ICD-10-PCS; principal; 2018-04-26)
PROC: 5A09357 Assistance with Respiratory Ventilation, Less than 24 Consecutive Hours, Continuous Positive Airway Pressure (ICD-10-PCS; 2018-04-27)
PROC: 5A09357 Assistance with Respiratory Ventilation, Less than 24 Consecutive Hours, Continuous Positive Airway Pressure (ICD-10-PCS; 2018-04-28)
PROC: 5A09357 Assistance with Respiratory Ventilation, Less than 24 Consecutive Hours, Continuous Positive Airway Pressure (ICD-10-PCS; 2018-04-29)
PROC: 0T9B70Z Drainage of Bladder with Drainage Device, Via Natural or Artificial Opening (ICD-10-PCS; 2018-04-29)
PROC: 5A09357 Assistance with Respiratory Ventilation, Less than 24 Consecutive Hours, Continuous Positive Airway Pressure (ICD-10-PCS; 2018-04-30)
PROC: 5A09357 Assistance with Respiratory Ventilation, Less than 24 Consecutive Hours, Continuous Positive Airway Pressure (ICD-10-PCS; 2018-05-01)
DX: N32.89 Other specified disorders of bladder (principal); N17.0 Acute kidney failure with tubular necrosis; I50.32 Chronic diastolic (congestive) heart failure; E44.1 Mild protein-calorie malnutrition; I48.92 Unspecified atrial flutter; D62 Acute posthemorrhagic anemia; I13.0 Hypertensive heart and chronic kidney disease with heart failure and stage 1 through stage 4 chronic kidney disease, or unspecified chronic kidney disease; J96.10 Chronic respiratory failure, unspecified whether with hypoxia or hypercapnia; J98.11 Atelectasis; R55 Syncope and collapse; R31.0 Gross hematuria; E66.9 Obesity, unspecified; Z68.38 Body mass index [BMI] 38.0-38.9, adult; I95.9 Hypotension, unspecified; R33.9 Retention of urine, unspecified; N18.9 Chronic kidney disease, unspecified; E11.22 Type 2 diabetes mellitus with diabetic chronic kidney disease; E11.40 Type 2 diabetes mellitus with diabetic neuropathy, unspecified; D72.829 Elevated white blood cell count, unspecified; C67.9 Malignant neoplasm of bladder, unspecified; E78.00 Pure hypercholesterolemia, unspecified; E78.5 Hyperlipidemia, unspecified; I44.0 Atrioventricular block, first degree; I48.91 Unspecified atrial fibrillation; J44.9 Chronic obstructive pulmonary disease, unspecified; K59.00 Constipation, unspecified; E87.5 Hyperkalemia; F17.200 Nicotine dependence, unspecified, uncomplicated; G47.33 Obstructive sleep apnea (adult) (pediatric); I25.10 Atherosclerotic heart disease of native coronary artery without angina pectoris; I25.2 Old myocardial infarction; Z79.4 Long term (current) use of insulin; Z82.3 Family history of stroke; Z82.49 Family history of ischemic heart disease and other diseases of the circulatory system; Z85.51 Personal history of malignant neoplasm of bladder; Z95.1 Presence of aortocoronary bypass graft
CPT/HCPCS: 36415; 71045; 71250; 74176; 80048; 80053; 81001; 82274; 82436; 82570; 82607; 82746; 82962; 83036; 83540; 83550; 83735; 83880; 84132; 84133; 84300; 84484; 85014; 85018; 85025; 85610; 85730; 86850; 86900; 87040; 93005; 93306; 94660; 96361; 96374; J0690; J1815; J2704; J3010; J7030; J7040

== ENCOUNTER → 2019-03-29 | Outpatient (CLI) | payer MEDICARE ==
[~2019-03-29] MED LIST changes: +AMLO-150 PO; -AMLO5TAB2 PO; -ASPI-621 PO; +ASPI81TA45 PO; +FURO80TA3 PO; +INSU100V11 SQ; +KETO1DRO RIGHTEYE; +LOSA25TA25 PO; -LOSA25TA5 PO; +NIAC500T9 PO; +OFLOXACIN OPTH RIGHTEYE; +PREDNISOLONE RIGHTEYE; +ZOLP10TA PO
== END | disposition home or self-care (01) ==
LOC: CFH 10:54
PROVIDERS: ATTEND Internal Medicine Cardiovascular Disease
DX: G45.9 Transient cerebral ischemic attack, unspecified (principal)
CPT/HCPCS: 70450; 93880